=== PATIENT | male | born 1970 | race Caucasian/White ===

== ENCOUNTER 2016-10-21 23:20 | Inpatient (IN) | payer BC ==
--- NOTE | 2016-10-22 01:23 | ED ---
Skin Complaint - HPI Summary HPI Summary: Patient arrives to ED with CC of left lower leg swelling with warmth and slight erythema x 2 days. He states he is unable to ambulate well and cannot fully bear weight. Patient had a US 2 days ago to R/O DVT based on calf pain and posterior knee pain. US results revealed a small popliteal cyst of the left leg with no evidence of DVT. Today he notes to much worsening swelling and pain with warmth and redness. Areas of raised and indurated lumps are most painful on palpation. Denies HOLDER, N/V. Denies history of MRSA or other cellulitis. Denies recent travel. Denies smoking history. - History of Current Complaint Chief Complaint: EDExtremityLower Time Seen by Provider: 10/22/16 00:26 Stated Complaint: SWOLLEN LT LEG Hx Obtained From: Patient Onset/Duration: Started Days Ago Timing: Constant Onset Severity: Moderate Current Severity: Severe Pain Intensity: 10 Pain Scale Used: 0-10 Numeric Skin Location: Discrete, Leg - left Aggravating Symptom(s): Nothing Alleviating Symptom(s): Nothing Associated Signs & Symptoms: Tenderness, Red Streaks, Joint Swelling - Allergy/Home Medications Allergies/Adverse Reactions: Allergies Allergy/AdvReac Type Severity Reaction Status Date / Time No Known Allergies Allergy Verified 10/21/16 23:33 Home Medications: Home Medications NK [No Home Medications Reported] 10/22/16 [History Confirmed 10/22/16] PMH/Surg Hx/FS Hx/Imm Hx Previously Healthy: Yes Infectious Disease History: No Infectious Disease History: Reports: Traveled Outside the [place] in Last 30 Days - Social History Occupation: Employed Full-time Lives: With Family Alcohol Use: None Hx Substance Use: No Substance Use Type: Reports: None Hx Tobacco Use: No Smoking Status (MU): Never Smoked Tobacco Review of Systems Constitutional: Negative Cardiovascular: Negative Respiratory: Negative Gastrointestinal: Negative Positive: Arthralgia - left knee, Myalgia - left calf Positive: Other - swelling and slight erythema over left calf Neurological: Negative Psychological: Normal All Other Systems Reviewed And Are Negative: Yes Physical Exam Triage Information Reviewed: Yes Vital Signs On Initial Exam: Initial Vitals Temp Pulse Resp BP Pulse Ox 100.7 F 110 20 103/76 100 10/21/16 23:30 10/21/16 23:30 10/21/16 23:30 10/21/16 23:30 10/21/16 23:30 Vital Signs Reviewed: Yes Appearance: Positive: Well-Appearing, No Pain Distress, Well-Nourished Skin: Positive: Warm, Skin Color Reflects Adequate Perfusion, Other - slight erythema over medial calf. left lower leg swelling and warmth. small lumps proximal and medial to left knee pain on palpation and slightly fluctant resembling venous structure Head/Face: Positive: Normal Head/Face Inspection Eyes: Positive: EOMI, NOMI, Conjunctiva Clear Neck: Positive: Supple, No Lymphadenopathy Respiratory/Lung Sounds: Positive: Clear to Auscultation, Breath Sounds Present Cardiovascular: Positive: Normal, RRR Musculoskeletal: Positive: Normal, Strength/ROM Intact Neurological: Positive: Normal, Sensory/Motor Intact, Other - gait abnormal d/t pain Psychiatric: Positive: Normal, Affect/Mood Appropriate AVPU Assessment: Alert Diagnostics - Vital Signs Vital Signs Temp Pulse Resp BP Pulse Ox 10/21/16 23:30 100.7 F 110 20 103/76 100 - Laboratory Result Diagrams: 10/22/16 01:33 10/22/16 01:33 Lab Statement: Any lab studies that have been ordered have been reviewed, and results considered in the medical decision making process. Course/Dx - Course Course Of Treatment: US performed. Labs ordered. signed out to dr. gonzalez at 2am. - Diagnoses Provider Diagnoses: Septic arthritis of knee, left Discharge - Discharge Plan Condition: Stable Disposition: ADMITTED TO [facility] Images - Images Full Body (No Head): 1 - swelling and slight erythema with warmth
[2016-10-22 01:46] LABS: Hematocrit 41 % (42-52); Hemoglobin 13.6 g/dl (14.0-18.0); Mean Corpuscular HGB Conc 33 g/dl (31-36); Mean Corpuscular Hemoglobin 31 pg (27-31); Mean Corpuscular Volume 92 fL (80-94); Mean Platelet Volume 8 um3 (7.4-10.4); Red Blood Count 4.39 10^6/ul (4.0-5.4); Red Cell Distribution Width 13 % (10.5-15); White Blood Count 8.7 10^3/ul (3.5-10.8)
[2016-10-22 03:16] LABS: Albumin 3.6 g/dL (3.2-5.2); BUN/Creatinine Ratio 18.7 (8-20); Calcium 8.8 mg/dL (8.6-10.3); EGFR African American 144.2 (>60); EGFR Non-African American 112.1 (>60); Potassium 3.8 mmol/L (3.5-5.0); Total Bilirubin 0.6 mg/dL (0.2-1.0); Total Protein 6.6 g/dL (6.4-8.9)
[2016-10-22 03:29] LABS: Erythrocyte Sed Rate 19 mm/Hr (0-14)
[2016-10-22] MEDS ORDERED: Sulfamethox/Trimethoprim DS 800/160* TAB PO ONE (03:56)
[2016-10-22] MEDS ORDERED: Ibuprofen TAB* 600 MG PO ONE (03:57)
[2016-10-22 05:52] LABS: Body Fluid Appearance Cloudy
[2016-10-22 06:06] LABS: Body Fluid WBC 21695 /mcL
[2016-10-22 06:33] LABS: Body Fluid Total Cells Counted 100
[2016-10-22] MEDS ORDERED: oxyCODONE/Acetamin 5/325 MG* TAB PO ONE (06:44)
--- NOTE | 2016-10-22 07:03 | ED ---
Jeanne Borja Matthew, scribed for Cuong Jarrell on 10/22/16 at 0529 . Progress - Progress Note Progress Note: The patient is a sign out from [place]. - Results/Orders Results/Orders: Left lower extremity US There is no DVT in the left lower extremity. Theer is a moderate-sized complex Spencer's cyst measuring up to 9.3 x 5.3 cm. Course/Dx - Course Course Of Treatment: Synovial fluid analysis was reviewed. - Diagnoses Provider Diagnoses: Septic arthritis of knee, left - Provider Notifications Discussed Care Of Patient With: Dr. Fam (Hospitalist) at 07:00 -- Notified of patient's history and will admit the patient. Procedures - Procedure Summary Procedure Summary: synovial tap on the left knee. Done under aseptic conditions. Synovial fluid collected with an 18 gauge needle and local anesthesia. 5cc drawn from the left knee and sent to the lab for further analysis. Patient tolerated the procedure well with no complications. The documentation as recorded by the Jeanne taylor Matthew accurately reflects the service I personally performed and the decisions made by Wesly capone Emmanuel.
--- NOTE | 2016-10-22 08:36 | RAD ---
Indication: Left leg edema. Duplex Doppler sonography of the deep venous system of the left lower extremity deep venous system was performed. Bilaterally the common femoral veins appear patent and compressible. Left proximal greater saphenous vein, proximal deep femoral vein, femoral vein, popliteal vein, posterior tibial veins and peroneal veins appear patent and compressible. Complex popliteal cyst is noted in the left popliteal fossa measuring 9.3 x 1.8 x 5.3 cm. IMPRESSION: NO EVIDENCE OF DEEP VENOUS THROMBOSIS IS IDENTIFIED. POPLITEAL CYST MEASURING 9.3 X 1.8 X 5.3 CM.
--- NOTE | 2016-10-22 08:45 | RAD ---
Indication: Left knee pain and swelling. 4 views of left knee demonstrates no fracture. Small joint effusion is noted. Soft tissue swelling is noted medially. IMPRESSION: Joint effusion. Soft tissue swelling medially. No fracture is noted.
--- NOTE | 2016-10-22 09:30 | PN ---
Progress Note - Progress Note Note: Full note dictated. 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 Left knee aspirated by me and sent for cell count, aerobic/anaerobic cultures, Lyme PCR, crystal analysis, fungal cultures. I also ordered Lyme serology. I will follow up the results of this as well as the previous aspirations results.
[2016-10-22 09:55] LABS: C Reactive Protein 76.51 mg/L (< 5.00)
--- NOTE | 2016-10-22 12:15 | CONS ---
CONSULTATION NOTE: DATE OF CONSULT: 10/22/16 CHIEF COMPLAINT: Left knee pain and swelling. HISTORY OF PRESENT ILLNESS: Dmitry is a 46-year-old healthy male who last Sunday , 6 days ago began to develop pain in the left knee. That knee over the next day or two swelled up. He did not have any fevers, but it was becoming progressively painful and difficult to move. He went to his doctor where there was some concern for a DVT and a venous Doppler was ordered, which was negative. He has been watching it and then when yesterday when he started to feel a bit feverish, 5 days after the onset of the knee pain, he came to the emergency room late overnight. I was consulted after the emergency room physician had performed a left knee aspiration, which showed 21,000 white blood cells. Currently, he denies having any fevers or feeling ill. He has never had anything like this before. The knee was completely painless and a normal knee prior to this all starting on Sunday. He did recently return from [facility]. PAST MEDICAL HISTORY: He is a healthy male. PAST SURGICAL HISTORY: No surgeries to the left knee. MEDICATIONS: Negative. ALLERGIES: No known drug allergies. FAMILY HISTORY: Noncontributory. SOCIAL HISTORY: He is a nonsmoker. He denies drug use. He did recently return from some spring travel. He is and in a monogamous relationship. REVIEW OF SYSTEMS: A full 14-point review of systems was conducted and is negative except for that mentioned above. PHYSICAL EXAMINATION: General: Awake, alert and oriented, mood and affect are normal. HEENT: Normocephalic, atraumatic. Lymphatic: No palpable lymphadenopathy. Neck is supple. Abdomen: Soft, nondistended. Skin: No rashes. There is no significant redness over the left knee. There is some mild warmth. Neurological: Grossly normal. The left lower extremity is neurovascularly intact distally. Vascular: Warm and well perfused distally, foot is pink. Musculoskeletal: He has a negative secondary survey other than the left knee. There is absolutely no pain in any other joints. He has a large effusion. Left knee is mildly warm. There is no erythema. He is able to move the knee from 0 to about 45 degrees without too much discomfort but then it becomes quite painful beyond that. Knee is otherwise stable and in good alignment. IMAGING: Prior venous Doppler was read as negative. Left knee x-ray reviewed by me and showed no fracture. There is a large effusion. IMPRESSION: Left knee monoarthritis with an aspiration done overnight that showed a white blood cell count 21,000. Gram stain and culture are pending. His overall clinical presentation and cell count to me are most concerning for Lyme disease as his clinical representation also has a very similar presentation for Lyme monoarthropathy. PLAN: I went ahead and reaspirated the left knee. I have sent that fluid for cell count, Gram stain and culture, fungal cultures, crystal analysis, Lyme PCR testing. I have also ordered serology for Lyme disease. The patient has already been admitted by the medical service. I will follow the results of the tests throughout the day. Should there be any bacteria on the culture, then we would do an arthroscopic left knee irrigation and debridement. If this comes back as Lyme, then we will get him started on appropriate antibiotics, often doxycycline, and probably get Dr. Yousif involved. PROCEDURE: Informed verbal consent was obtained and the area over the left lateral knee was copiously cleaned with Betadine. I let that dry and then I used a 25- gauge needle to inject the skin and knee capsule with some 1% lidocaine without epinephrine. I gave this 15 minutes to work and then using sterile technique, I introduced an 18-gauge needle into the knee joint. I got back 10 cc of yellow- green synovial fluid and handed this off to be sent for the specimen. I then aspirated another 50 cc of synovial fluid. I let a little bit more to drain out through the needle. I could not get any more fluid out, so I withdrew the needle. The knee was cleaned up and Band-Aid applied. [id number]/[facility] #: [id number] [facility]
[2016-10-22] MEDS: oxyCODONE/Acetamin 5/325 MG* TAB PO PRN ×2 (12:53→19:10)
[2016-10-22] MEDS ORDERED: Heparin VIAL(*) 5000 UNITS/ML VIAL (FIVE THOUSAND) SUBCUT SCH (14:00)
[2016-10-22 14:59] LABS: Body Fluid WBC 10136 /mcL
[2016-10-22 15:04] LABS: Body Fluid Appearance Cloudy; Body Fluid Total Cells Counted 100
--- NOTE | 2016-10-22 21:56 | HP ---
HISTORY AND PHYSICAL: DATE OF ADMISSION: 10/22/16 PRIMARY CARE PROVIDER: Tea Barker NP CHIEF COMPLAINT: Left knee pain and swelling. HISTORY OF PRESENT ILLNESS: Mr. Swartz is a 46-year-old male with a past medical history who presented to the hospital with left knee pain and swelling. Starting 5 or 6 days ago, he states his left knee felt "weird" and he had noticed some mild leg pain. Over the following days, the pain and swelling seemed to focus more on his knee. He went to see Tea Barker NP, at [facility], where he was noted to have a swollen calf and joint effusion. The patient underwent ultrasound that was negative for blood clots, did show a Spencer's cyst. He was told to use compression stockings, elevate his legs, was given some ibuprofen. He states that the pain was not too immobilizing and he was still able to walk around although with a limp. Yesterday, he noticed the pain and swelling became significantly worse. He also reported some chills. He has had no history of symptoms like this in the past. Has no problems in any other joints. Denies any trauma to the knee. He reports some occasional palpitations, which started before his knee issues. He thinks it may be related to his new job, which he has been anxious about. Denies any shortness of breath, abdominal pain, nausea, vomiting, diarrhea, or constipation. In the emergency department, the patient underwent arthrocentesis that showed fair amount of wbc's on the tap. Hospitalist service was consulted to evaluate the patient for admission. PAST MEDICAL HISTORY: Negative. PAST SURGICAL HISTORY: None. HOME MEDICATIONS: None. ALLERGIES: The patient reports no known drug allergies. FAMILY HISTORY: Significant for mother with arthritis. SOCIAL HISTORY: The patient is a 10- to 34-airn-tfdx-per-day smoker. He quit a number of years ago. Reports 2 to 3 drinks per day, occasionally will have more than that. smokes marijuana occasionally. REVIEW OF SYSTEMS: A 12-point review of systems was negative except for that as noted in the HPI. PHYSICAL EXAMINATION GENERAL: The patient is a middle-aged, male lying in bed, in no apparent distress. VITAL SIGNS: On admission, temperature 100.7, heart rate of 110, respiratory rate of 20, O2 saturation 100% on room air, blood pressure 103/76. HEENT: Moist mucous membranes. Anicteric sclerae. No cervical adenopathy. LUNGS: Clear to auscultation bilaterally. No wheezes, rales, or rhonchi. CARDIOVASCULAR : Regular rate and rhythm. S1, S2 present. No murmurs, gallops , or rubs. ABDOMEN: Soft, nontender, nondistended. Bowel sounds positive. EXTREMITIES: The patient with significant left knee effusion. Limited range of motion. Did not appreciate much erythema or warmth. It is mildly tender to palpation. NEURO: The patient is alert and oriented x3. No focal neurological deficits. DIAGNOSTIC STUDIES/LAB DATA: White blood cell count of 8.7, hematocrit of 41, platelets of 228, ESR of 19. INR of 1.06. Sodium 137, potassium 3.8, chloride of 106, carbon dioxide of 24, BUN of 14, creatinine 0.75, glucose of 114. CRP of 76. CK of 100. Initial arthrocentesis shows white blood cell count of 21, 695, 98% which are neutrophils; red blood cells of 62,874. Knee x-ray shows soft tissue swelling, no fracture. Venous Doppler shows no evidence of DVT, but it shows a complex popliteal cyst that is fairly big at 9.3 x 1.8 x 5.3 cm. ASSESSMENT AND PLAN: Left knee pain and swelling in a 46-year-old man with no past medical history. 1. Left knee pain and swelling. I appreciate ED's assistance in his arthrocentesis. I appreciate Dr. Mcintosh' consultation. The patient received a dose of ceftriaxone in the emergency department. Initial Gram stain is negative and Staphylococcus aureus and methicillin-resistant Staphylococcus aureus PCR both negative. For now, we will continue ceftriaxone until cultures are finalized. Dr. Mcintosh feels that this may be possibly Lyme as the patient traveled to [facility] recently. He has added Lyme test on to the synovial fluid. I have also added on crystal analysis for possible gout. I will add on gonococcal PCR, although this seems less likely. This may also be secondary to a viral infection. Percocet for pain. 2. DVT prophylaxis. Heparin subcu. TIME SPENT: Total time spent on this admission was 45 minutes with over half the time was spent [id number] with the patient in counseling and coordinating care. CC: Tea Barker NP* [id number]/[facility] #: [id number] [facility]
[2016-10-22] MEDS: Heparin VIAL(*) 5000 UNITS/ML VIAL (FIVE THOUSAND) SUBCUT SCH (22:01)
[2016-10-23] MEDS: oxyCODONE/Acetamin 5/325 MG* TAB PO PRN ×3 (02:28→12:44)
[2016-10-23 02:38] LABS: Hematocrit 39 % (42-52); Hemoglobin 13.1 g/dl (14.0-18.0); Mean Corpuscular HGB Conc 34 g/dl (31-36); Mean Corpuscular Hemoglobin 31 pg (27-31); Mean Corpuscular Volume 93 fL (80-94); Mean Platelet Volume 8 um3 (7.4-10.4); Red Blood Count 4.17 10^6/ul (4.0-5.4); Red Cell Distribution Width 13 % (10.5-15); White Blood Count 8.4 10^3/ul (3.5-10.8)
[2016-10-23 02:48] LABS: BUN/Creatinine Ratio 14.3 (8-20); Calcium 8.8 mg/dL (8.6-10.3); EGFR African American 126.5 (>60); EGFR Non-African American 98.4 (>60); Potassium 3.8 mmol/L (3.5-5.0)
[2016-10-23] MEDS: cefTRIAXone VIAL(*) 1,000 MG in NS 0.9% 50 ML* 50 ML IVPB SCH (06:03)
[2016-10-23] MEDS: Heparin VIAL(*) 5000 UNITS/ML VIAL (FIVE THOUSAND) SUBCUT SCH ×3 (06:05→21:46)
--- NOTE | 2016-10-23 07:03 | PN ---
Progress Note - Progress Note Note: Doing well and knee feeling better this morning. Motion this morning form 0-90 degrees. Less effusion than yesterday. Knee warm but no erythema. Repeat aspiration with 10K cell count. A/P: clinically feeling better, no surgical intervention planned. final cultures are pending, crystal analysis should return today, consider d/c home today on doxycycline and follow up results of Lyme tests as an outpatient if crystal analysis negative
[2016-10-23] MEDS ORDERED: Influenza VAC *QUAD* 2016-17* 0.5 ML SYRINGE IM ONE (09:00)
--- NOTE | 2016-10-23 09:31 | PN ---
Subjective Date of Service: 10/23/16 Interval History: Patient seen and examined at bedside. He reports better movement in knee ROM this AM. Denies chest pain, SOB, abd pain, n/v. Patient does have significant swelling and redness to posterior knee and calf. Patient reports calf appears " a little bit more swollen." Family History: Unchanged from Admission Social History: Unchanged from Admission Past Medical History: Unchanged from Admission Objective Active Medications: Heparin Sodium (Porcine) (Heparin Vial(*)) 5,000 units SUBCUT Q8HR JUDY Last Admin: 10/23/16 06:05 Dose: 5,000 units Ceftriaxone Sodium 1,000 mg/ (Sodium Chloride) 50 mls @ 200 mls/hr IVPB Q24H JUDY Last Admin: 10/23/16 06:03 Dose: 200 mls/hr Oxycodone/Acetaminophen (Percocet 5/325 Tab*) 1 tab PO Q4H PRN PRN Reason: Pain Last Admin: 10/23/16 07:33 Dose: 1 tab Vital Signs 10/22/16 10/22/16 10/22/16 10:15 10:37 10:50 Temperature 98.0 F 98 F Pulse Rate 78 78 Respiratory 16 16 16 Rate Blood Pressure 116/71 116/71 (mmHg) O2 Sat by Pulse 100 98 Oximetry 10/22/16 10/22/16 10/22/16 10:59 12:22 12:53 Temperature 98.3 F Pulse Rate 85 Respiratory 16 18 16 Rate Blood Pressure 116/60 (mmHg) O2 Sat by Pulse 100 Oximetry 10/22/16 10/22/16 10/22/16 14:53 15:16 18:12 Temperature 98.4 F 99.8 F Pulse Rate 84 Respiratory 16 16 Rate Blood Pressure 115/64 (mmHg) O2 Sat by Pulse 99 Oximetry 10/22/16 10/22/16 10/22/16 19:10 19:16 19:48 Temperature 100.2 F Pulse Rate 99 Respiratory 16 16 20 Rate Blood Pressure 135/64 (mmHg) O2 Sat by Pulse 100 Oximetry 10/22/16 10/23/16 10/23/16 21:10 00:21 02:28 Temperature 100.8 F Pulse Rate 103 Respiratory 18 16 20 Rate Blood Pressure 112/56 (mmHg) O2 Sat by Pulse 98 Oximetry 10/23/16 10/23/16 10/23/16 03:48 04:28 07:27 Temperature 99.3 F 98.8 F Pulse Rate 95 80 Respiratory 16 18 16 Rate Blood Pressure 121/53 115/67 (mmHg) O2 Sat by Pulse 96 98 Oximetry 10/23/16 10/23/16 07:33 08:00 Temperature Pulse Rate Respiratory 16 16 Rate Blood Pressure (mmHg) O2 Sat by Pulse Oximetry Oxygen Devices in Use Now: None Appearance: Male patient, lying in bed, in NAD Eyes: PERRLA Ears/Nose/Mouth/Throat: Clear Oropharnyx, Mucous Membranes Moist Neck: NL Appearance and Movements; NL JVP Respiratory: Symmetrical Chest Expansion and Respiratory Effort, Clear to Auscultation Cardiovascular: NL Sounds; No Murmurs; No JVD, RRR Abdominal: NL Sounds; No Tenderness; No Distention Extremities: - - LLE swelling and erythema along the posterior knee and calf Skin: No Rash or Ulcers Neurological: Alert and Oriented x 3 Lines/Tubes/Other Access: Clean, Dry and Intact Peripheral IV Nutrition: Taking PO's Result Diagrams: 10/23/16 02:11 10/23/16 02:11 Microbiology and Other Data: Microbiology 10/22/16 09:13 Gram Stain - Final Body Fluid - Knee Left Assess/Plan/Problems-Billing Assessment: Mr. Swartz is a 46 yo male with no significant PMH who presented on 10/22/16 for evaluation of left knee pain and swelling. - Patient Problems (1) Knee effusion, left Code(s): M25.462 - EFFUSION, LEFT KNEE Comment: Low grade fever 100.8 overnight Swelling extends into the left calf Previous U/S negative for blood clots but positive for Spencer's cyst Arthrocentesis done in ED - negative for MSSA/MRSA, crystal analysis pending ? Lyme disease, serology pending Continue ceftriaxone. Will consult ID to guide home antibiotic choice (2) DVT prophylaxis Code(s): XCU8596 - Comment: SQ heparin Status and Disposition: OBV admit. D/c to home when medically stable.
[2016-10-23] MEDS ORDERED: Iohexol 300* (CONTRAST) 10 ML SDV IV SCH (11:43)
--- NOTE | 2016-10-23 14:14 | RAD ---
INDICATION: Spencer's cyst, left lower leg swelling evaluate for abscess. COMPARISON: Comparison is made with prior x-ray study of the left knee in venous duplex study of the left lower extremity from October 22, 2016. Correlation is also made with a prior left lower cavity venous duplex study from October 19, 2016. TECHNIQUE: Contiguous axial sections were obtained of the left knee and left lower leg. Images were reconstructed in the sagittal and coronal planes. The exam was performed following intravenous injection of 100 mL of Omnipaque 300 nonionic contrast. FINDINGS: There is soft tissue swelling which is most prominent along the posterior medial aspect of the knee and left lower leg. There is a large joint effusion present. In addition there is a large Spencer cyst present measuring approximately 14.7 x 3.6 x 3.5 cm. The cyst measures greater in size than on the prior studies. Fluid is noted tracking along the inferior aspect of the cyst into the calf. There is mild enhancement of the wall and a couple areas of more focal wall thickening consistent with a complex cyst and suggesting the possibility of an infected or inflamed cyst. There is soft tissue swelling in the adjacent subcutaneous tissues. The bones are in normal alignment. No significant focal osseous abnormality is seen. IMPRESSION: 1. LARGE JOINT EFFUSION. 2. LARGE COMPLEX SPENCER CYST DEMONSTRATING INTERVAL INCREASE IN SIZE. THERE IS MILD ENHANCEMENT OF THE WALL OF THE CYST SUGGEST THE POSSIBILITY OF AN INFLAMED OR INFECTED CYST. THERE IS ALSO SUGGESTION OF RUPTURE ALONG THE INFERIOR ASPECT OF THE CYST.
[2016-10-23] MEDS ORDERED: Ketorolac INJ* 30 MG/ML 1 ML VIAL IV PUSH ONE (19:08)
--- NOTE | 2016-10-23 21:30 | CONS ---
CONSULTATION REPORT: DATE OF CONSULT: 10/23/16 REQUESTING PROVIDER: Nirmala Ortega NP. CONSULTING SERVICE: Infectious Disease. REASON FOR CONSULT: Left leg swelling. IMPRESSION: Left knee effusion with 20,000 white cells, 98% polys, no crystals. The Gram stain showed polys, no organisms. PCR for Staphylococcus aureus is negative. The culture is negative at 24 hours. Differential diagnosis does include Lyme which is being pursued already; however, the presence of fever and chills at the same time as the knee involvement make that seem a little bit less likely. He had a recent travel to the [facility], [place] is a consideration as he did have mosquito exposure to what sounds like Aedes mosquitoes; however, he only has one joint involved and this is usually a multiple symmetric joint involvement. He has had a history of a bilateral wrist inflammation about a year ago, so an autoimmune disorder like rheumatoid arthritis, psoriatic arthritis, reactive arthritis, spondyloarthropathies are consideration. 2. Left thigh and calf edema and tenderness which is much more impressive than the knee effusion with left calf ecchymosis and tenderness without crepitus. The differential diagnosis includes that the knee involvement was sympathetic reaction to what is going on in the calf. He did have a Spencer's cyst which could have ruptured and led to the calf involvement or he could have a primary calf muscle or soft tissue infection. 3. Fever with elevated C-reactive protein due to the left leg process. RECOMMENDATION: 1. CT of the left calf and knee to evaluate the Spencer's cyst, question rupture of the cyst or any evidence of deeper calf infection. 2. The Lyme DEBORA is pending. We will add rheumatoid factor, anti-CCP antibody. Continue ceftriaxone. HISTORY OF PRESENT ILLNESS: This is a 46-year-old man admitted with left knee pain and swelling. He had a recent trip to the [facility], lot of outdoor time and mosquito exposure there, that was about 14 days ago. Did not get sick while he was there, spent a lot of time outdoors in this area, does have tick exposure. About 1 week ago, he has had left knee stiffness, swelling, and proximal leg pain above the knee, then seemed to focus more on the knee itself being swollen, hurt a little bit to bear weight, and then developed edema and swelling of the calf. He had an ultrasound at that time that showed no clot; however, there was a small Spencer's cyst. He tried ibuprofen, keeping the legs elevated, but the swelling and pain persisted, not necessarily with weightbearing but calf pain. He had another ultrasound on the and came to the hospital that showed no DVT but the Spencer's cyst was up to 9 x 5 cm from 2 x 4 cm. He also had the knee joint aspirated on the , showed 21,000 white cells, 98% polys, no crystals. Cultures are negative. He has had a temperature to 38.2 including overnight last night. Blood cultures were sent and are pending. The pain in this calf is most prominent, the knee does not hurt him as much. He can bend it more than he had been able to. The left thigh is a little bit swollen, but not painful. He has no other areas of pain or swelling in the spine or other joints. He feels feverish with sweats at night and decreased appetite, low energy. No skin rashes he knows of. PAST MEDICAL HISTORY: None. MEDICATIONS: 1. Heparin subcutaneous injection. 2. Ceftriaxone 1 g a day. 3. Percocet. ALLERGIES: None. FAMILY HISTORY: His mother has arthritis. No recurrent infections. SOCIAL HISTORY: Lives in [place]. He works at [employer]. Past tobacco use. Occasional alcohol. REVIEW OF SYSTEMS: A 12-point review of systems negative except as noted above in the history of present illness. PHYSICAL EXAM: Vital Signs: Temperature is 37, heart rate is 80, respiratory rate 16, blood pressure 115/67, and O2 sat 98% on room air. In general, he is awake and oriented x3, in no acute distress. Neurologically, follows commands and answers questions. Moves all extremities. Strength is 5/5 in the bilateral quadriceps, tibialis anterior, and gastrocnemius bilaterally. Sensation intact to light touch in the lower extremities bilaterally. HEENT: There is no conjunctival hemorrhage. Oropharynx without lesions. Neck: Supple without nuchal rigidity. Lymph Nodes: There is no cervical, supraclavicular, inguinal, axillary, or epitrochlear lymphadenopathy. Heart has regular rate and rhythm without murmurs, rubs, or gallops. Lungs are clear to auscultation bilaterally. Abdomen: Soft, nontender, and nondistended without hepatosplenomegaly. No rebound tenderness. Musculoskeletal: There is no spine tenderness to palpation. In the left leg, there is thigh edema and calf edema without crepitus or fluctuance. To the left medial calf, there is scattered ecchymosis with some tenderness, no crepitus or fluctuance. In the left knee, there is a moderate effusion. LABORATORY DATA: White blood cell count 8, hemoglobin 13, platelets 224. Creatinine is 0.8. CRP is 76. Please see impressions and recommendations as outlined above which I have discussed with Nirmala Ortega NP. Thanks for asking me to see Mr. Swartz in consultation. [id number]/[facility] #: [id number] MTDD
[2016-10-24] MEDS: cefTRIAXone VIAL(*) 1,000 MG in NS 0.9% 50 ML* 50 ML IVPB SCH (05:48)
[2016-10-24] MEDS: Heparin VIAL(*) 5000 UNITS/ML VIAL (FIVE THOUSAND) SUBCUT SCH ×3 (05:48→20:52)
[2016-10-24 06:37] LABS: Hematocrit 39 % (42-52); Hemoglobin 12.7 g/dl (14.0-18.0); Mean Corpuscular HGB Conc 33 g/dl (31-36); Mean Corpuscular Hemoglobin 31 pg (27-31); Mean Corpuscular Volume 94 fL (80-94); Mean Platelet Volume 8 um3 (7.4-10.4); Red Blood Count 4.12 10^6/ul (4.0-5.4); Red Cell Distribution Width 12 % (10.5-15); White Blood Count 7.8 10^3/ul (3.5-10.8)
--- NOTE | 2016-10-24 10:05 | PN ---
Progress Note - Progress Note SOAP: Subjective: []Patient seen at bedside. Mild improvement in knee pain since admission. Calf more painful than his knee. Overall about the same. Objective: [] Vital Signs Temp 98.8 F 10/24/16 07:32 Pulse 91 10/24/16 07:32 Resp 18 10/24/16 07:32 BP 118/72 10/24/16 07:32 Pulse Ox 100 10/24/16 07:32 Intake & Output 10/23/16 10/24/16 10/24/16 18:59 06:59 18:59 Intake Total 800 1655 Output Total 1220 1050 Balance -420 605 Weight 210 lb Intake: IV Fluids 55 Oral 800 1600 Output: Urine 1220 1050 Laboratory Results - last 24 hr 10/22/16 10/24/16 09:13 05:44 WBC 7.8 RBC 4.12 Hgb 12.7 L Hct 39 L MCV 94 MCH 31 MCHC 33 RDW 12 Plt Count 253 MPV 8 Neut % (Auto) 60.3 Lymph % (Auto) 20.8 L Daniels % (Auto) 11.6 H Eos % (Auto) 6.1 H Baso % (Auto) 1.2 Absolute Neuts (auto) 4.7 Absolute Lymphs (auto) 1.6 Absolute Monos (auto) 0.9 H Absolute Eos (auto) 0.5 Absolute Basos (auto) 0.1 Absolute Nucleated RBC 0 Nucleated RBC % 0 Fluid Cell Count Rvw By Microbiology 10/22/16 09:13 Gram Stain - Final Body Fluid - Knee Left Body Fluid Culture - Preliminary No Growth Day 2 10/22/16 07:10 Gram Stain - Final Joint Fluid(Synovial) - Knee Left Body Fluid Culture - Preliminary No Growth Day 2 Skin and Soft Tissue MRSA/MSSA (PCR - Final Mrsa Negative S.aureus Negative 10/23/16 02:19 Aerobic Blood Culture - Preliminary Blood Venous No Growth Day 1 Anaerobic Blood Culture - Preliminary No Growth Day 1 10/23/16 02:12 Aerobic Blood Culture - Preliminary Blood Venous No Growth Day 1 Anaerobic Blood Culture - Preliminary No Growth Day 1 left knee with a mild effusion and minimal tenderness Calf with moderate swelling and mottled rubor, appears to be early ecchymosis, tender, especially medial gastrocnemius, soft sensation intact distally +DF/PF with mild calf pain, medially Assessment: []Right knee effusion, aspirate NGTD of bacteria or crystals Right calf effusion, CT reveals partial ruptured bakers cyst into gastrocnemius Plan: []Venous doppler ordered by medicine today Await Lyme titer Continue IV Ceftriaxone
--- NOTE | 2016-10-24 12:35 | PN ---
Progress Note - Progress Note SOAP: Subjective: DOS: 10/24/16 CC: left leg swelling HPI: 46 year old man with left thigh, knee, calf swelling, redness around medial calf with tenderness there; CT showed rupture of spencer's cyst. Leg pain about the same, no weakness, swelling a little worse. No fever or rash. Objective: [] Vital Signs Temp 37.2 C 10/24/16 12:15 Pulse 90 10/24/16 12:15 Resp 18 10/24/16 12:15 BP 125/71 10/24/16 12:15 Pulse Ox 100 10/24/16 12:15 Intake & Output 10/23/16 10/24/16 10/24/16 18:59 06:59 18:59 Intake Total 800 1655 300 Output Total 1220 1050 Balance -420 605 300 Weight 210 lb Intake: IV Fluids 55 Oral 800 1600 300 Output: Urine 1220 1050 Gen:NAD Neuro:AAOX3, sensation intact to light touch left leg, strenth 5/5 quad/TA/ gastroc HEENT:PERRL, no thrush Neck:supple Heart;RRR no murmur Lungs:CTA BL Abd:+BS NTND soft Skin: medial left calf non blanching erythematous macules MSK: diffuse left leg edema no crepitus or fluctuance left knee small effusion Laboratory Results - last 24 hr 10/24/16 05:44 WBC 7.8 RBC 4.12 Hgb 12.7 L Hct 39 L MCV 94 MCH 31 MCHC 33 RDW 12 Plt Count 253 MPV 8 Neut % (Auto) 60.3 Lymph % (Auto) 20.8 L [place] % (Auto) 11.6 H Eos % (Auto) 6.1 H Baso % (Auto) 1.2 Absolute Neuts (auto) 4.7 Absolute Lymphs (auto) 1.6 Absolute Monos (auto) 0.9 H Absolute Eos (auto) 0.5 Absolute Basos (auto) 0.1 Absolute Nucleated RBC 0 Nucleated RBC % 0 Assessment: 1. left leg swelling and knee effusion, CT showed probable ruptured Spencer's cyst with enhancement ?bleeding, infection, other 2. fever, improving Plan: 1. continue ceftriaxone, monitor leg diameter, will discuss with ortho ? 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
--- NOTE | 2016-10-24 12:43 | RAD ---
Indication: Left leg edema and pain. Duplex Doppler sonography of the deep venous system of the left lower extremity deep venous system was performed. Bilaterally the common femoral veins appear patent and compressible. Left proximal greater saphenous vein, proximal deep femoral vein, femoral vein, popliteal vein, posterior tibial veins and peroneal veins appear patent and compressible. Small fluid collection in the popliteal fossa measuring 2.2 x 1.1 x 1.7 cm. Fluid collection in the proximal medial calf is noted measuring 14.2 x 1.5 cm. IMPRESSION: NO EVIDENCE OF DEEP VENOUS THROMBOSIS IS IDENTIFIED. FLUID COLLECTION IN THE PROXIMAL MEDIAL CALF MEASURING UP TO 14.2 X 1.5 CM.
--- NOTE | 2016-10-24 13:07 | PN ---
Subjective Date of Service: 10/24/16 Interval History: Patient seen and examined at bedside. He denies fever/chills, CP, SOB, abd pain , n/v; reports improvement in LLE pain and ability to withstand weight. Does admit to further swelling to LLE calf. Family History: Unchanged from Admission Social History: Unchanged from Admission Past Medical History: Unchanged from Admission Objective Active Medications: Heparin Sodium (Porcine) (Heparin Vial(*)) 5,000 units SUBCUT Q8HR JUDY Last Admin: 10/24/16 05:48 Dose: 5,000 units Ceftriaxone Sodium 1,000 mg/ (Sodium Chloride) 50 mls @ 200 mls/hr IVPB Q24H JUDY Last Admin: 10/24/16 05:48 Dose: 200 mls/hr Influenza Virus Vaccine (Fluarix *Quad* *) 0.5 ml IM .ONCE ONE Stop: 10/25/16 09:01 Iohexol (Omnipaque 300* (Contrast)) 100 ml IV ONCE JUDY Stop: 10/25/16 11:42 Last Admin: 10/23/16 13:12 Dose: 100 ml Oxycodone/Acetaminophen (Percocet 5/325 Tab*) 1 tab PO Q4H PRN PRN Reason: Pain Last Admin: 10/23/16 12:44 Dose: 1 tab Vital Signs 10/23/16 10/23/16 10/23/16 15:23 19:20 20:00 Temperature 99.0 F 100.5 F Pulse Rate 94 98 Respiratory 16 16 18 Rate Blood Pressure 128/68 114/60 (mmHg) O2 Sat by Pulse 100 99 Oximetry 10/23/16 10/23/16 10/24/16 20:26 22:42 00:18 Temperature 99.6 F 98.4 F Pulse Rate 86 Respiratory 16 16 Rate Blood Pressure 129/70 (mmHg) O2 Sat by Pulse 100 Oximetry 10/24/16 10/24/16 10/24/16 03:26 07:32 12:15 Temperature 98.2 F 98.8 F 98.9 F Pulse Rate 87 91 90 Respiratory 16 18 18 Rate Blood Pressure 116/60 118/72 125/71 (mmHg) O2 Sat by Pulse 100 100 100 Oximetry Oxygen Devices in Use Now: None Appearance: Male patient, lying in bed, in NAD Eyes: PERRLA Ears/Nose/Mouth/Throat: Clear Oropharnyx, Mucous Membranes Moist Neck: NL Appearance and Movements; NL JVP Respiratory: Symmetrical Chest Expansion and Respiratory Effort, Clear to Auscultation Cardiovascular: NL Sounds; No Murmurs; No JVD, RRR Abdominal: NL Sounds; No Tenderness; No Distention Extremities: - - LLE edema with erythema and Neurological: Alert and Oriented x 3 Lines/Tubes/Other Access: Clean, Dry and Intact Peripheral IV Nutrition: Taking PO's Result Diagrams: 10/24/16 05:44 10/23/16 02:11 Microbiology and Other Data: Microbiology 10/22/16 09:13 Gram Stain - Final Body Fluid - Knee Left Assess/Plan/Problems-Billing Assessment: Mr. Swartz is a 46 yo male with no significant PMH who presented on 10/22/16 for evaluation of left knee pain and swelling. - Patient Problems (1) Knee effusion, left Code(s): M25.462 - EFFUSION, LEFT KNEE Comment: Low grade fever 100.5 last evening, but clinically improving with weight bearing and pain. Swelling has increased in the left calf CT LLE shows possible rupture of inferior aspect of cyst and possible inflammation/infection. U/S shows 14.5x1.5 fluid collection - discussed with ortho and plan for fluid collection aspiration via interventional radiology tomorrow. Arthrocentesis done in ED - negative for MSSA/MRSA, crystal analysis negative ? Lyme disease, serology pending Continue ceftriaxone. Appreciate ID input. (2) DVT prophylaxis Code(s): [id number] - Comment: SQ heparin Status and Disposition: OBV admit. D/c to home when medically stable.
[2016-10-24] MEDS: oxyCODONE/Acetamin 5/325 MG* TAB PO PRN (22:30)
[2016-10-24 23:14] LABS: B garinii/B afzelii PCR Negative (Negative); B mayonii PCR Negative (Negative)
[2016-10-25] MEDS: Heparin VIAL(*) 5000 UNITS/ML VIAL (FIVE THOUSAND) SUBCUT SCH ×2 (04:02→14:14)
[2016-10-25] MEDS: cefTRIAXone VIAL(*) 1,000 MG in NS 0.9% 50 ML* 50 ML IVPB SCH (06:09)
[2016-10-25] MEDS ORDERED: Influenza VAC *QUAD* 2016-17* 0.5 ML SYRINGE IM ONE (09:00)
--- NOTE | 2016-10-25 11:28 | PN ---
Progress Note - Progress Note SOAP: Subjective: []Patient seen at bedside, feeling a little better in terms of knee/calf pain and swelling. Objective: [] Vital Signs Temp 98.3 F 10/25/16 07:21 Pulse 84 10/25/16 07:21 Resp 16 10/25/16 08:22 BP 105/72 10/25/16 07:21 Pulse Ox 100 10/25/16 07:21 Intake & Output 10/24/16 10/25/16 10/25/16 18:59 06:59 18:59 Intake Total 700 1600 144 Output Total 950 1550 Balance -250 50 144 Intake: IV Fluids 86 NS (0.9%) 86 IVPB 58 ABX - CEFTRIAXONE 58 Oral 700 1600 Output: Urine 950 1550 Laboratory Results - last 24 hr 10/22/16 10/22/16 10/22/16 01:33 01:33 09:13 Lyme Disease Serology Positive B. burgdorferi (PCR) Negative Lyme Disease DNA (PCR) Lyme DNA Comment See comment B.garinii/afzelii PCR Negative B. mayonii (PCR) Negative Microbiology 10/22/16 09:13 Gram Stain - Final Body Fluid - Knee Left Body Fluid Culture - Preliminary No Growth Day 3 10/22/16 07:10 Gram Stain - Final Joint Fluid(Synovial) - Knee Left Body Fluid Culture - Preliminary No Growth Day 3 Skin and Soft Tissue MRSA/MSSA (PCR - Final Mrsa Negative S.aureus Negative 10/23/16 02:19 Aerobic Blood Culture - Preliminary Blood Venous No Growth Day 2 Anaerobic Blood Culture - Preliminary No Growth Day 2 Blood Culture - Final 10/23/16 02:12 Aerobic Blood Culture - Preliminary Blood Venous No Growth Day 2 Anaerobic Blood Culture - Preliminary No Growth Day 2 Blood Culture - Final left knee with effusion but non tender, moves actively fairly well calf is less swollen and blotchy rubor has improved calf less tender to palpation +DF/PF with minimal calf pain neuro intact Assessment: []Left knee effusion- aspirate negative for sepsis probable Lyme disease, awaiting final markers that are still pending. B. burgdorferi negative to date Plan: []Scheduled for aspiration of bakers cyst in IR today continue current IV abx per ID/ medicine will continue to follow
--- NOTE | 2016-10-25 14:56 | PN ---
Subjective Date of Service: 10/25/16 Interval History: Patient seen and examined at bedside. He reports improvement in leg pain and mobility though there is still discomfort with weight bearing. Denies fever/ chills, CP, SOB, abd pain, n/v. He is s/p fluid aspiration from left calf; kathie wrap applied for compression. We discussed having patient obtain compression grade stocking for the extremity from a medical supply store. Patient to f/u with ortho and ID, which he verbalized understanding of. No further concerns or complaints. Family History: Unchanged from Admission Social History: Unchanged from Admission Past Medical History: Unchanged from Admission Objective Active Medications: Heparin Sodium (Porcine) (Heparin Vial(*)) 5,000 units SUBCUT Q8HR JUDY Last Admin: 10/25/16 14:14 Dose: Not Given Ceftriaxone Sodium 1,000 mg/ (Sodium Chloride) 50 mls @ 200 mls/hr IVPB Q24H JUDY Last Admin: 10/25/16 06:09 Dose: 200 mls/hr Oxycodone/Acetaminophen (Percocet 5/325 Tab*) 1 tab PO Q4H PRN PRN Reason: Pain Last Admin: 10/24/16 22:30 Dose: 1 tab Vital Signs 10/24/16 10/24/16 10/24/16 15:23 19:11 19:22 Temperature 98.6 F 100.0 F Pulse Rate 91 98 Respiratory 16 18 16 Rate Blood Pressure 123/75 133/74 (mmHg) O2 Sat by Pulse 100 100 Oximetry 10/24/16 10/24/16 10/25/16 22:30 23:53 00:30 Temperature 98.9 F Pulse Rate 91 Respiratory 18 16 18 Rate Blood Pressure 133/69 (mmHg) O2 Sat by Pulse 97 Oximetry 10/25/16 10/25/16 10/25/16 03:56 07:21 08:22 Temperature 97.7 F 98.3 F Pulse Rate 81 84 Respiratory 18 16 16 Rate Blood Pressure 120/68 105/72 (mmHg) O2 Sat by Pulse 100 100 Oximetry Oxygen Devices in Use Now: None Appearance: Male patient, lying in bed, in NAD Eyes: PERRLA Ears/Nose/Mouth/Throat: Clear Oropharnyx, Mucous Membranes Moist Neck: NL Appearance and Movements; NL JVP Respiratory: Symmetrical Chest Expansion and Respiratory Effort, Clear to Auscultation Cardiovascular: NL Sounds; No Murmurs; No JVD, RRR Abdominal: NL Sounds; No Tenderness; No Distention Extremities: - - LLE edema with knee infusion and calf edema Skin: - - erythematous macules to posterior calf Neurological: Alert and Oriented x 3 Lines/Tubes/Other Access: Clean, Dry and Intact Peripheral IV Nutrition: Taking PO's Result Diagrams: 10/24/16 05:44 10/23/16 02:11 Microbiology and Other Data: Microbiology 10/22/16 09:13 Gram Stain - Final Body Fluid - Knee Left Assess/Plan/Problems-Billing Assessment: Mr. Swartz is a 46 yo male with no significant PMH who presented on 10/22/16 for evaluation of left knee pain and swelling. - Patient Problems (1) Knee effusion, left Code(s): M25.462 - EFFUSION, LEFT KNEE Comment: Positive lyme serology. Start doxycycline 100 mg BID with outpatient followup with ID. Clinically improving with weight bearing and pain. S/p aspiration of fluid collection - approx 150 mL of serosanguinous fluid aspirated. Left knee arthrocentesis done in ED - negative for MSSA/MRSA, crystal analysis negative Ortho follow-up in 1 week. (2) DVT prophylaxis Code(s): GHE5606 - Comment: SQ heparin Status and Disposition: Inpatient admission. D/c to home.
--- NOTE | 2016-10-25 15:08 | RAD ---
CPT II Codes: 6100F INDICATION: Left lower leg pain and erythema with underlying subcutaneous fluid collection COMPARISON: CT of the knee dated October 23, 2016 The benefits and risks of procedure explained to the patient and the patient signed informed consent. Multiple images of the medial left lower leg were obtained. The fluid collection, tracking subcutaneously from approximately the mid-level left lower leg to the level of the knee, in question was identified and a percutaneous tract was determined. A time out was performed before beginning the procedure. The patient was prepped and draped in the usual sterile fashion. The skin and tissue overlying the fluid collection were anesthetized with 1% lidocaine. Percutaneously, a 5-Lithuanian catheter with needle stylette was slowly advanced from the superior most portion of the collection in the inferior direction approximately half the sagittal length of the subcutaneous fluid collection. The needle stylette was removed and a syringe was attached to the soft catheter and fluid aspiration was performed under sonographic control. The catheter was slowly retracted in the cephalad direction as the cavity collapsed. A total of 150 mL of hematogenous stained serous fluid was aspirated, packaged and the liver to the laboratory. The post procedure ultrasound demonstrates near complete resolution of the fluid collection and no evidence of acute hematoma. The patient tolerated procedure well without incident. IMPRESSION: Uncomplicated ultrasound-guided catheter aspiration of proximal medial left lower leg subcutaneous fluid collection as described in more detail above. As was discussed with Nirmala edge NP after the procedure, compression therapy to the left lower leg (e.g. an kathie wrap or 30-40 mmHg compression stocking) may help prevent reaccumulation of the subcutaneous fluid.
[2016-10-25] MEDS ORDERED: DOXYcycline CAP(*) 100 MG PO ONE (16:00)
[2016-10-25] MEDS: oxyCODONE/Acetamin 5/325 MG* TAB PO PRN (16:03)
[2016-10-25 16:51] VITALS: BP 135/70
[2016-10-25 23:26] LABS: Lyme Disease IgG Ab WB Positive (Negative)
--- NOTE | 2016-10-26 07:08 | DS ---
DISCHARGE SUMMARY: DATE OF ADMISSION: 10/22/16 DATE OF DISCHARGE: 10/25/16 PRIMARY CARE PHYSICIAN: MAXIMO Christianson. PROVIDER: Marybeth Chan NP. ATTENDING PHYSICIAN: Dr. Stevie Evans *(as dictated by Marybeth Chan NP). CONSULTING PHYSICIANS: Dr. Danny Mcintosh of Orthopedics and Dr. Wiley Yousif of Infectious Disease. PRIMARY DISCHARGE DIAGNOSES: 1. 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 2. Left knee effusion. 3. Lyme disease. MEDICATIONS AT DISCHARGE: 1. Doxycycline 100 mg b.i.d. x28 days. 2. Ibuprofen 800 mg q. 6 hours p.r.n. 3. Percocet one tab q. 6 hours p.r.n. DIAGNOSTIC TESTING DURING THIS ADMISSION: Venous Doppler study from 10/22/16. Impression: No evidence of deep venous thrombosis as identified. Popliteal cyst measuring 9.3 x 1.8 x 5.3 cm. Knee x-ray from 10/22/16: Joint effusion. Soft tissue swelling medially. No fractures noted. Lower extremity CT from 10/23/16. Impression: 1. Large joint effusion. 2. Large complex Spencer's cyst demonstrating interval increase in size. There is mild enhancement of the wall of the cyst to suggest the possibility of an inflamed or an infected cyst. There is also suggestion of rupture along the inferior aspect of the cyst. Venous Doppler study from 10/24/16. Impression: No evidence of deep venous thrombosis identified. Fluid collection in the proximal medial calf measuring up to 14.2 x 1.5 cm. HOSPITAL COURSE OF STAY: For full details, please refer to the H and P provided by Dr. Fam on 10/22/16. In summary, Ms. Swartz is a 46-year-old male with no significant past medical history, who presented to the hospital with left knee pain and swelling that started approximately 5 to 6 days prior to admission. He was first evaluated by his nurse practitioner at [facility] but as the pain has worsened, he presented to the ER. In the ER, he underwent an arthrocentesis with the ER physician and orthopedist that showed a fair amount of wbc's. He was admitted and started on ceftriaxone and tested for Lyme disease. During his stay, the patient continued to have some low -grade fevers as well as continued and worsening left lower extremity swelling. The patient was consulted on by Infectious Disease, who expressed concern for cyst rupture or deep calf infection. Testing was also sent to evaluate for rheumatoid arthritis, which is still pending. Of note, the patient did recently travel to the [facility] and had some mosquito exposure and was tested for chikungunya. We did obtain a second ultrasound just to evaluate the swelling and continued growth of the patient's left calf. He was found to have a 14.2 x 1.5 cm fluid collection. The patient went to IR on 10/25/16 for aspiration under ultrasound guidance of this fluid collection. Approximately 150 mL of blood-stained serous fluid was aspirated and sent to the lab for testing. Postprocedural ultrasound demonstrates near complete resolution of the fluid collection and no evidence of acute hematoma per discussion with Dr. Coley. An Pablo wrap was applied to the patient's lower extremity upon return to the surgical stay unit and a prescription was given to the patient for 30 to 40 mmHg compression stocking that he can obtain from the medical supply store. These results were discussed with ID and Ortho, who would both like to see the patient in approximately 1 week. The patient did have a positive Lyme serology that returned today and is started on doxycycline, which he will continue for a 28-day course and follow up with Dr. Yousif next week. The patient reports clinical improvement in range of motion, lower extremity swelling and pain, and feels stable for discharge. Prescriptions were given for ibuprofen, oxycodone, compression stockings and a rolling walker. I did I-STOP the patient. The patient's vital signs are stable. He has been advised to return to the ER for further evaluation if he has any fevers, changes of color, sensation or movement of his lower extremity or worsening swelling and pain to the lower extremity. He has verbalized understanding. CONCERNS AT DISCHARGE: Mr. Swartz will be discharged to home on 10/25/16 with plan to follow up with his PCP tomorrow on 10/26/16 as well as with Dr. Yousif of ID and Dr. Mcintosh of Ortho next week. As these offices are closed, the patient will call tomorrow for appointment. He has also received a physical therapy referral if needed to help with mobilization of his lower extremity. DIET: Regular diet. ACTIVITY: As tolerated. Prescription given to obtain rolling walker. CONDITION: Stable. DISPOSITION: To home. TIME SPENT: Time spent on this discharge was approximately 50 minutes; more than half that time was spent [id number] with the patient providing education and medication teaching. Again, this is only a brief summary of the patient's hospital course of stay. For full details, please refer to the full medical record. If you have any further questions or need further assistance, please feel free to contact me at [phone]. MARYBETH CHAN NP CC: MAXIMO Christianson* [id number]/SUBHA #: [id number] MARY GRACE
== END 2016-10-25 16:25 | disposition home or self-care (01) | DRG 724 ==
LOC: ED 23:20 → SSU 10-22 07:20 → OBSVTOIN 10-23 15:00
PROVIDERS: ADMIT Hospitalist; ATTEND Internal Medicine
PROC: 0S9D3ZZ Drainage of Left Knee Joint, Percutaneous Approach (ICD-10-PCS; principal; 2016-10-21)
DX: A69.20 Lyme disease, unspecified (principal); F12.90 Cannabis use, unspecified, uncomplicated; M66.0 Rupture of popliteal cyst; Z87.891 Personal history of nicotine dependence
CPT/HCPCS: 36415; 80048; 80053; 82550; 85025; 85610; 85652; 85730; 86140; 86617; 86618; 87040; 87070; 87102; 87205; 87476; 87640; 87641; 87798; 88173; 89051; 89060; 90686; A9270-GY; J0696; J1644; J1885; Q9967